=== PATIENT | male | born 1930 | race Caucasian/White ===

== ENCOUNTER 2017-01-05 14:32 | Emergency (ER) | payer OTHER ==
[2017-01-05 14:42] VITALS: RESP 16; TEMP 97.7
[2017-01-05] MEDS ORDERED: TDAP ADULT 0.5 ML INJ (BOOSTRIX) IM ONE (15:09)
--- NOTE | 2017-01-05 15:13 | EDPHY ---
H & P Time Seen by Provider: 01/05/17 14:53 HPI/ROS: CHIEF COMPLAINT: Right lower extremity swelling and pain HISTORY OF PRESENT ILLNESS: 86-year-old male with a history of atrial fibrillation on Coumadin presents with right lower extremity swelling and pain. 2 days ago he had a syncopal episode after getting up from a sitting position too quickly. At that time he was in [facility] and went to an emergency department. His superficial lacerations and abrasions were cleaned and he was sent home from the emergency department with a normal evaluation otherwise. Since then, he has not been taking his blood pressure medication or his Coumadin. He has had gradually increasing swelling and pain in his right thigh. No weakness or numbness. He has an abrasion on his right ear, but denies headache or neck pain. REVIEW OF SYSTEMS: Constitutional: No fever, no chills Eyes: No visual changes ENT: No sore throat Respiratory: No cough, no shortness of breath Cardiac: No chest pain Gastrointestinal: no vomiting, no abdominal pain Genitourinary: no dysuria Skin: No rash Neurological: No headache, no weakness Psychiatric: No depression Past Medical/Surgical History: Atrial fibrillation Hypertension Hyperlipidemia Social History: No recent alcohol Smoking Status: Never smoked Physical Exam: General Appearance: Alert, pleasant Eyes: Pupils equal and round, no conjunctival pallor or injection ENT, Mouth: Mucous membranes moist Neck: Normal inspection, no midline tenderness, range of motion without pain Respiratory: Lungs are clear to auscultation Cardiovascular: irregularly irregular rate and rhythm Gastrointestinal: Abdomen is soft and nontender Neurological: A&O, motor 5/5, sensory intact to light touch, antalgic gait Skin: Warm and dry, multiple abrasions on the right upper extremity and the pinna of the right ear Extremities: right lower extremity-tenderness and from swelling of the entire thigh, range of motion of the hip and knee without pain, no calf swelling or tenderness Psychiatric: Mood and affect normal Constitutional: Initial Vital Signs Temperature (C) 36.5 C 01/05/17 14:39 Heart Rate 93 01/05/17 14:39 Respiratory Rate 16 01/05/17 14:39 Blood Pressure 108/78 01/05/17 14:39 O2 Sat (%) 96 01/05/17 14:39 O2 Delivery Mode Room Air Allergies/Adverse Reactions: No Known Allergies Allergy (Unverified 05/28/15 12:23) Home Medications: Medication Instructions Recorded Aspirin EC [Aspirin EC 81 mg (*)] 81 mg PO DAILY 12/03/13 Carvedilol [Coreg (*)] 6.25 mg PO BIDMEAL 12/03/13 Lisinopril [Zestril 5 mg (*)] 5 mg PO DAILY 12/03/13 Niacin ER [Niaspan 500 mg (*)] 500 mg PO HS 12/03/13 Nitroglycerin [Nitrostat 0.4 mg 0.4 mg SL PRN PRN 12/03/13 (*)] Spironolactone [Aldactone 25 MG 25 mg PO DAILY 12/03/13 (*)] Warfarin Sodium [Coumadin 5MG (*)] 5 mg PO DAILY16 12/03/13 Medical Decision Making ED Course/Re-evaluation: This patient presents 2 days after a syncopal episode and fall with gradually increasing right lower extremity swelling and tenderness, consistent with hematoma formation. No evidence of compartment syndrome. I doubt that he has a DVT or fracture. However, I will proceed with x-ray and US of the area to confirm. Labs will also be obtained. Femur x-ray is negative for fracture as read by Dr. Bran, radioloy. US of the lower extremity is negative for DVT as read by Dr. Bran, radiology. Labs obtained and demonstrate mild anemia associated with the patient's lower extremity hematoma. There is no evidence of ongoing hemorrhage. Concerning that his protime is still therapeutic, as he's been off Coumadin for 2 days. INR likely was supratherapeutic, which contributed to the hematoma formation. He will continue to hold the Coumadin until Saturday (2days). On Saturday, he will f/u with PCP and have INR checked. consider resuming Coumadin on Saturday. I discussed lab and imaging results with the patient. He understands that he should follow-up with his PCP early this week if he does not experience significant improvement to his complaints. He is given customary return precautions and will be discharged home in good condition. Differential Diagnosis: includes though not limited to DVT, fx, compartment syndrome, ongoing hemorrhage - Data Points Laboratory Results: Laboratory Results 01/05/17 16:15 Medications Given: Discontinued Medications Diphtheria/Tetanus/Acell Pertussis (Boostrix) 0.5 ml IM .ONCE ONE Stop: 01/05/17 15:10 Last Admin: 01/05/17 15:33 Dose: 0.5 ml Departure - Departure Disposition: Home, Routine, Self-Care Clinical Impression: Hematoma of right lower extremity, Anemia Condition: Good Instructions: Anemia (ED), Hematoma (ED) Additional Instructions: 1. Make sure to stand up slowly to prevent feelings of dizziness or lightheadedness. 2. You should expect your pain and swelling to improve over the next few days. Please follow-up with your primary care provider if you do not experience significant improvement to your complaints in 2-3 days. 3. Return to the Emergency Department with increased swelling, severe pain, dizziness or fainting, or for other serious concerns. Referrals: Dami Swartz MD [Primary Care Provider] - As per Instructions Report Scribed for: Jackeline Giles Report Scribed by: Swathi Shepherd Date of Report: 01/05/17 Time of Report: 16:21 Physician Review and Approval Statement: 01/05/17 16:21 Portions of this note were transcribed by a registered medical assistant. I personally performed a history, physical exam, medical decision making, and confirmed accuracy of information the transcribed note.
[2017-01-05 16:26] LABS: % IMMATURE GRANULYOCYTES 0.3 % (0.0-1.1); ABSOLUTE IMMATURE GRANULOCYTES 0.03 10^3/uL (0.00-0.10); ADD DIFF? NO; ADD MORPH? NO; ADD SCAN? NO; ATYPICAL LYMPHOCYTE FLAG 10 (0-99); FRAGMENT RBC FLAG 0 (0-99); HEMATOCRIT 33.2 % (40.0-51.0); HEMOGLOBIN 10.9 g/dL (13.7-17.5); LEFT SHIFT FLG 0 (0-99); LIPEMIA HEMOLYSIS FLAG 80 (0-99); MEAN CELL HEMOGLOBIN 31.1 pg (27.9-34.1); MEAN CELL HEMOGLOBIN CONCENTR. 32.8 g/dL (32.4-36.7); MEAN CELL VOLUME 94.9 fL (81.5-99.8); MEAN PLATELET VOLUME 10.6 fL (8.7-11.7); PLATELET CLUMPS FLAG 0 (0-99); PLATELET COUNT 136 10^3/uL (150-400); RED CELL DISTRIBUTION WIDTH 13.2 % (11.5-15.2)
[2017-01-05 16:35] LABS: INR 2.6 (0.83-1.16); PROTIME(PATIENT) 28.1 SEC (12.0-15.0)
[2017-01-05 16:53] VITALS: BP 112/62; PULSE 71; O2SAT 93
== END 2017-01-05 16:53 | disposition home or self-care (01) ==
DX: S80.11XA Contusion of right lower leg, initial encounter (principal); D64.9 Anemia, unspecified; I10 Essential (primary) hypertension; Z79.82 Long term (current) use of aspirin; Z79.01 Long term (current) use of anticoagulants; Z23 Encounter for immunization; X58.XXXA Exposure to other specified factors, initial encounter

== ENCOUNTER 2017-01-09 12:29 | Emergency (ER) | payer OTHER ==
[2017-01-09 12:33] VITALS: O2SAT 95
--- NOTE | 2017-01-09 13:19 | EDPHY ---
H & P Stated Complaint: hematoma on R thigh here sat for same thing Time Seen by Provider: 01/09/17 14:06 HPI/ROS: CHIEF COMPLAINT: Right thigh hematoma HISTORY OF PRESENT ILLNESS: This patient is an 86-year-old male with history of atrial fibrillation who was referred to the Emergency Department from Dr. Steven ' office today for increased swelling and ecchymosis to his right thigh secondary to a syncopal episode and fall last . He was evaluated in the ED on Saturday, four days prior to this visit, and had a normal femur x-ray and extremity ultrasound at that time. He presents today because the ecchymosis has spread medially and distally to his right lower extremity. He reports improvement in his ability to bear weight on his right leg. He has no additional complaints. He was previously taking Coumadin but stopped this medication as instructed. He is planning to begin taking aspirin daily as instructed by his machine packaging technician. REVIEW OF SYSTEMS: A ten point review of systems was performed and is negative with the exception of the items mentioned in the HPI. Source: Patient Exam Limitations: No limitations - Personal History Current Tetanus/Diphtheria Vaccine: Yes Current Tetanus Diphtheria and Acellular Pertussis (TDAP): Yes Tetanus Vaccine Date: within 10 yrs - Medical/Surgical History PMH: 1. Atrial fibrillation 2. Hypertension 3. Hyperlipidemia 4. Coronary artery disease with stents 5. 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 a fib dr steven - Social History Smoking Status: Never smoked - Physical Exam Exam: General Appearance: Alert. Vital signs reviewed. Eyes: Pupils equal and round, no conjunctival injection, no discharge. Anicteric. Neck: No lymphadenopathy, supple. Respiratory: Lungs are clear to auscultation; no wheezes, rales, or rhonchi. Cardiovascular: Regular rate and rhythm; no murmur, rub, or gallop. Pulses: 2+ bilateral femoral pulses. Gastrointestinal: Abdomen is soft and nontender, no masses or organomegaly, bowel sounds normal. Skin: Warm and dry, no rashes on exposed skin, normal color except for the bruised areas. Extremities: Purple ecchymosis to the upper anterior thigh extending distally to the knee with yellow and blue ecchymosis over the knee. Full active and passive range of motion to the right hip and knee. Neurological: Alert and oriented. Moving all four extremities easily and equally. Normal gait. Psychiatric: Normal affect. Constitutional: Initial Vital Signs Temperature (C) 36.5 C 01/09/17 12:32 Heart Rate 101 H 01/09/17 12:32 Respiratory Rate 16 01/09/17 12:32 Blood Pressure 137/79 H 01/09/17 12:32 O2 Sat (%) 95 01/09/17 12:32 O2 Delivery Mode Room Air Allergies/Adverse Reactions: No Known Allergies Allergy (Unverified 05/28/15 12:23) Home Medications: Medication Instructions Recorded Aspirin EC [Aspirin EC 81 mg (*)] 81 mg PO DAILY 12/03/13 Carvedilol [Coreg (*)] 6.25 mg PO BIDMEAL 12/03/13 Lisinopril [Zestril 5 mg (*)] 5 mg PO DAILY 12/03/13 Niacin ER [Niaspan 500 mg (*)] 500 mg PO HS 12/03/13 Nitroglycerin [Nitrostat 0.4 mg 0.4 mg SL PRN PRN 12/03/13 (*)] Spironolactone [Aldactone 25 MG 25 mg PO DAILY 12/03/13 (*)] Warfarin Sodium [Coumadin 5MG (*)] 5 mg PO DAILY16 12/03/13 Medical Decision Making ED Course/Re-evaluation: 86-year-old male presents to the Emergency Department for reevaluation of right thigh hematoma sustained last week after a syncopal episode and collapse. He was evaluated here on Saturday; medical records reviewed reveal a normal femur x -ray and ultrasound of the right lower extremity. He reports being referred here today by his machine packaging technician, Dr. Steven, for concern that there may be ongoing bleeding into his leg. On exam the ecchymotic areas appear old, consistent with his history of previous fall. He has full range of motion to both his right hip and right knee with normal gait without pain. Given this, I do not feel further imaging or evaluation is warranted at this time. The bruised areas appear to be following the expected history of resolution of ecchymosis. 1400: I consulted with Dr. Steven who agrees that further evaluation is not needed at this time. I discussed customary return precautions with the patient. He will continue his regimen of taking baby Aspirin as discussed with Dr. Steven. He will be discharged home in good condition. Differential Diagnosis: I considered a differential diagnosis that includes but is not limited to natural progression of traumatic ecchymosis in a patient on anticoagulation, continued bleeding, superficial thrombophlebitis, DVT. Departure - Departure Disposition: Home, Routine, Self-Care Clinical Impression: Hematoma of right thigh Qualifiers: Encounter type: subsequent encounter Qualified Code(s): S70.11XD - Contusion of right thigh, subsequent encounter Condition: Good Instructions: Hematoma (ED) Additional Instructions: 1. Begin your daily baby aspirin regimen in 2-3 days as discussed with Dr. Steven. 2. Rest and elevate your leg until your bruising subsides. 3. You should expect the bruising to your leg to gradually improve over time. Return to the Emergency Department immediately with worsening bruising or swelling, increased pain when walking or moving your leg, fever, paleness to your leg, or for other serious concerns. Referrals: Dami Steven MD [Primary Care Provider] - As per Instructions Report Scribed for: Nisha Stewart Report Scribed by: Swathi Shepherd Date of Report: 01/09/17 Physician Review and Approval Statement: 01/09/17 13:19 Portions of this note were transcribed by the medical front desk coordinator. I, Dr. Nisha Stewart, personally performed the history, physical exam, and medical decision- making; and confirmed the accuracy of the information in the transcribed note.
[2017-01-09 14:12] VITALS: BP 128/67; PULSE 80; RESP 18; TEMP 98.2
== END 2017-01-09 14:16 | disposition home or self-care (01) ==
DX: S70.11XD Contusion of right thigh, subsequent encounter (principal); I10 Essential (primary) hypertension; I25.10 Atherosclerotic heart disease of native coronary artery without angina pectoris; Z79.01 Long term (current) use of anticoagulants; Z79.82 Long term (current) use of aspirin; Z95.5 Presence of coronary angioplasty implant and graft; W19.XXXD Unspecified fall, subsequent encounter

== ENCOUNTER → 2017-02-01 | Outpatient (CLI) | payer OTHER | LOC: BHFA 08:30 | PROVIDERS: ATTEND Internal Medicine Cardiovascular Disease | DX: I25.10 Atherosclerotic heart disease of native coronary artery without angina pectoris (principal) ==

== ENCOUNTER → 2017-02-04 | Outpatient (CLI) | payer OTHER | LOC: BHFA 09:00 | PROVIDERS: ATTEND Internal Medicine Interventional Cardiology | DX: I25.10 Atherosclerotic heart disease of native coronary artery without angina pectoris (principal) | CPT/HCPCS: 78452; 93017; A9500; J2785 ==

== ENCOUNTER → 2018-03-24 | Outpatient (CLI) | payer OTHER | LOC: BMCIMAGING 15:23 | PROVIDERS: ATTEND Internal Medicine | DX: M79.652 Pain in left thigh (principal) ==

== ENCOUNTER → 2018-09-17 | Outpatient (CLI) | payer OTHER | LOC: BHLMT 15:30 | PROVIDERS: ATTEND Internal Medicine Interventional Cardiology | DX: R06.02 Shortness of breath (principal); I48.91 Unspecified atrial fibrillation | CPT/HCPCS: 93306-PO ==